=== PATIENT | male | born 1990 | race American Indian/Alaskan Native ===

== ENCOUNTER 2017-03-28 16:01 | Emergency (ER) | payer SELFPAY ==
[2017-03-28 16:14] VITALS: BP 135/86
--- NOTE | 2017-03-28 21:00 | Emergency Department Report ---
Entered by JUAN MUNOZ, acting as scribe for MICHAEL CARDENAS PA. ED Eye Problem HPI - General Chief complaint: Eye Problems Stated complaint: EYE INJRY Time Seen by Provider: 03/28/17 18:23 Source: patient Mode of arrival: Ambulatory Limitations: No Limitations - History of Present Illness Initial comments: 26 y/o male presents to the ED c/o blurriness in right eye from unknown object today. Denies pain, redness, swelling, discharge, fever and chills. Patient states he was working with grass when something hit him in the right eye. 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 Denies wearing contacts/glasses. No alleviating or aggravating factors. NKDA. SOLIS chief complaint: vision change -: This afternoon Onset Description: sudden Location: right eye Place: home If Injury: none Eye Symptoms: blurry vision Severity: mild Consistency: constant Associated Symptoms: denies: other (pain, redness, swelling, discharge, fever and chills) Treatments Prior to Arrival: irrigated eye - Related Data Previous Rx's Medication Instructions Recorded Last Taken Type Naphazoline HCl/Pheniramine [Eye 1 - 2 drops OP BID #15 ml 03/28/17 Unknown Rx Allergy Relief Drops] Allergies Allergy/AdvReac Type Severity Reaction Status Date / Time No Known Allergies Allergy Verified 03/28/17 16:11 ED Review of Systems Comment: All other systems reviewed and negative Constitutional: denies: chills, fever Eyes: vision change (blurry vision). denies: eye pain, eye discharge, other ( eye redness, eye swelling) ED Past Medical Hx - Past Medical History Previous Medical History?: No - Surgical History Past Surgical History?: No - Social History Smoking Status: Never Smoker Substance Use Type: None - Medications Home Medications: Home Medications Medication Instructions Recorded Confirmed Last Taken Type Naphazoline HCl/Pheniramine [Eye 1 - 2 drops OP BID #15 ml 03/28/17 Unknown Rx Allergy Relief Drops] ED Physical Exam - General Limitations: No Limitations General appearance: alert, in no apparent distress - Head Head exam: Present: atraumatic, normocephalic, normal inspection - Eye Eye exam: Present: normal appearance, PERRL, EOMI. Absent: scleral icterus, conjunctival injection, nystagmus, periorbital swelling, periorbital tenderness Pupils: Present: normal accommodation - ENT ENT exam: Present: normal exam, normal orophraynx, mucous membranes moist, TM's normal bilaterally, normal external ear exam - Neck Neck exam: Present: normal inspection, full ROM. Absent: tenderness, meningismus, lymphadenopathy, thyromegaly - Respiratory Respiratory exam: Present: normal lung sounds bilaterally. Absent: respiratory distress, wheezes, rales, rhonchi, stridor, chest wall tenderness, accessory muscle use, decreased breath sounds, prolonged expiratory - Cardiovascular Cardiovascular Exam: Present: regular rate, normal rhythm, normal heart sounds. Absent: bradycardia, tachycardia, irregular rhythm, systolic murmur, diastolic murmur, rubs, gallop - GI/Abdominal GI/Abdominal exam: Absent: distended, tenderness, guarding, rebound, rigid, diminished bowel sounds - Extremities Exam Extremities exam: Absent: tenderness, pedal edema, joint swelling, calf tenderness - Back Exam Back exam: Present: normal inspection, full ROM. Absent: tenderness, CVA tenderness (R), CVA tenderness (L), muscle spasm, paraspinal tenderness, vertebral tenderness, rash noted - Neurological Exam Neurological exam: Present: alert, oriented X3, CN II-XII intact, reflexes normal - Psychiatric Psychiatric exam: Present: normal affect, normal mood - Skin Skin exam: Present: warm, dry, intact, normal color. 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 Discussed the follow up with primary care physician Vital signs are normal patient is in no acute distress ED Disposition Clinical Impression: Irritation of right eye Disposition: DC-01 TO HOME OR SELFCARE Is pt being admited?: No Does the pt Need Aspirin: No Condition: Stable Instructions: Blurred Vision (ED) Prescriptions: Naphazoline HCl/Pheniramine [Eye Allergy Relief Drops] 1 - 2 drops OP BID #15 ml Referrals: PRIMARY CARE, [Primary Care Provider] - 3-5 Days DEBBIE DUNCAN MD [Staff Physician] - 3-5 Days [facility] [Outside] - 3-5 Days [facility] [Outside] - 3-5 Days Forms: Accompanied Note, Work/School Release Form(ED) Time of Disposition: 18:47 This documentation as recorded by the ALEXANDER shen ELIZABETH,accurately reflects the service I personally performed and the decisions made by ,MICHAEL CARDENAS PA.
== END 2017-03-28 18:55 | disposition home or self-care (01) ==
LOC: ED 16:01
DX: H57.8 Other specified disorders of eye and adnexa (principal)
CPT/HCPCS: 99282